=== PATIENT | female | born 1955 | race Caucasian/White ===

== ENCOUNTER 2017-12-21 05:32 | Inpatient (IN) ==
[2017-12-06 14:00] LABS: Basophils % 0.6 % (0.0-0.8); Eosinophils # 0.1 10*3/uL (0.0-0.87); Hematocrit 31.5 VOL% (35.7-47.0); Immature Granulocytes % 0.9 %; Immature Granulocytes Absolute 0.06 #; Lymphocytes # 2.3 10*3/uL (1.4-4.0); Lymphocytes % 34.1 % (21.3-54.2); Mean Corpuscular HGB Conc 31.7 GM/DL (32-36); Mean Corpuscular Hemoglobin 28 PG (27-34); Mean Platelet Volume 10.8 FL (9.6-12.0); Monocytes # 0.5 10*3/uL (0.11-0.8); Monocytes % 8.2 % (1.7-12.7); Neutrophils # 3.6 10*3/uL (1.4-7.4); Neutrophils % 54.2 % (38.7-73.9); Platelet Count 236 T/CUMM (130-400); Red Blood Count 3.58 MC/CUMM (3.8-5.5); White Blood Count 6.6 T/CUMM (4-12)
[2017-12-06 14:09] LABS: INR 0.9; PT Patient Result 9.8 SECS; Partial Thromboplastin Time 23.2 SECS (0-40)
[2017-12-06 14:24] LABS: Alanine Aminotransferase 26 U/L (13-56); Albumin 3.2 G/DL (3.4-5.0); Alkaline Phosphatase 112 U/L (45-117); Aspartate Amino Transferase 30 U/L (0-37); Bilirubin,Total < 0.39 MG/DL (0.2-1.0); Blood Urea Nitrogen 21 MG/DL (7-18); Calcium 8.3 MG/DL (8.5-10.1); Glucose 115 MG/DL (74-106); Osmolality,Calculated 278.7 MOS/KG (273-304); Sodium 138 MMOL/L (136-145)
[2017-12-06 14:47] LABS: Apearance,Urine CLOUDY (Clear); Bacteria,Urine Occasional /HPF (Few); Bilirubin,Urine Small mg/dL (Negative); Blood, Urine Negative (Negative); Glucose,Urine (UA) Negative (Negative); Hyaline Casts,Urine 34 /LPF (0-3); Ketones,Urine 5 mg/dL (Negative); Mucus,Urine Occasional /LPF (Occasional); Nitrite,Urine Negative (Negative); Protein,Urine 30 MG/DL; RBC,Urine 2 /HPF (0-4); Squamous Epithelial Cell,Urine Many /HPF (0-10); Urine Color Amber (Yellow); Urine Specific Gravity 1.021 (1.001-1.035); WBC,Urine 1 /HPF (0-6)
[~2017-12-21 05:32] MED LIST: VANCOMYCIN INJ 1,000 MG in SODIUM CHLORIDE 0.9% 250 ML IV ONE; ceFAZolin 2,000 MG in PREMIX 1 EACH IV ONE
[2017-12-21] MEDS ORDERED: FAMOTIDINE 20 MG TABLET PO ONE (06:00)
[2017-12-21] MEDS ORDERED: DIAZEPAM 5 MG TABLET PO ONE (06:00)
[2017-12-21] MEDS ORDERED: VANCOMYCIN 1,000 MG VIAL ONE (06:10)
[2017-12-21] MEDS ORDERED: ceFAZolin 1,000 MG VIAL ONE (06:10)
[2017-12-21] MEDS ORDERED: BUPIVACAINE SPINAL 0.75% 2 ML AMP SPINAL ONE (06:34)
[2017-12-21] MEDS ORDERED: TRANEXAMIC ACID 1,000 MG/10 ML VIAL ONE (06:35)
[2017-12-21] MEDS ORDERED: BACITRACIN OINT 0.9 GM PACK TOP ONE (06:35)
[2017-12-21] MEDS ORDERED: LACTATED RINGERS 1,000 ML IV SCH (07:00)
[2017-12-21] MEDS ORDERED: FAMOTIDINE 20 MG TABLET ONE (07:03)
[2017-12-21] MEDS ORDERED: DIAZEPAM 5 MG TABLET ONE (07:03)
[2017-12-21] MEDS ORDERED: VANCOMYCIN INJ 1,000 MG in SODIUM CHLORIDE 0.9% 250 ML IV ONE (07:11)
[2017-12-21] MEDS ORDERED: ceFAZolin 2,000 MG in PREMIX 1 EACH IV ONE (07:12)
[2017-12-21] MEDS ORDERED: diphenhydrAMINE CAP 25 MG CAPSULE PO PRN (07:56)
[2017-12-21] MEDS ORDERED: MORPHINE 4 MG/1 ML VIAL IV PRN ×2 (07:56)
[2017-12-21] MEDS ORDERED: oxyCODONE IR 5 MG TABLET PO PRN (07:56)
[2017-12-21] MEDS ORDERED: ZALEPLON 5 MG CAPSULE PO PRN (07:56)
[2017-12-21] MEDS ORDERED: ONDANSETRON 4 MG/2 ML VIAL IV PRN (07:56)
[2017-12-21] MEDS ORDERED: MAGNESIUM HYDROXIDE SUSP 30 ML UDCUP PO PRN (07:56)
[2017-12-21] MEDS ORDERED: CHOLECALCIFEROL 4000 UNIT PO SCH (08:00)
[2017-12-21] MEDS ORDERED: ROPIVACAINE 0.5% 30 ML VIAL ONE (08:15)
[2017-12-21] MEDS ORDERED: DHA PO SCH (09:00)
[2017-12-21] MEDS ORDERED: PRAVASTATIN 20 MG TABLET PO SCH (09:00)
[2017-12-21] MEDS ORDERED: SERTRALINE 100 MG TABLET PO SCH (09:00)
[2017-12-21] MEDS ORDERED: KRILL PO SCH (09:00)
[2017-12-21] MEDS ORDERED: AST PO SCH (09:00)
[2017-12-21] MEDS ORDERED: SPIRONOLACTONE 25 MG TABLET PO SCH (09:00)
[2017-12-21] MEDS ORDERED: [UNRECOGNIZED DRUG - OTHER] PO SCH (09:00)
[2017-12-21] MEDS ORDERED: PHOSPHO PO SCH (09:00)
[2017-12-21] MEDS ORDERED: EPA PO SCH (09:00)
[2017-12-21] MEDS ORDERED: DEXTROSE 50% 25 GM/50 ML VIAL IV PRN (09:10)
[2017-12-21] MEDS ORDERED: GLUCAGON 1 MG VIAL IM PRN (09:10)
[2017-12-21] MEDS ORDERED: fentaNYL 100 MCG/2 ML VIAL ONE (09:42)
[2017-12-21] MEDS ORDERED: MIDAZOLAM 2 MG/2 ML VIAL ONE (09:42)
[2017-12-21] MEDS ORDERED: PROPOFOL 200 MG/20 ML VIAL IV ONE (09:42)
[2017-12-21] MEDS ORDERED: PHENYLEPHRINE 1 MG/10 ML SYRINGE IV ONE (09:43)
[2017-12-21] MEDS ORDERED: ONDANSETRON 4 MG/2 ML VIAL ONE (09:43)
[2017-12-21] MEDS ORDERED: ACETAMINOPHEN 1,000 MG/100 ML VIAL IV ONE (09:43)
[2017-12-21] MEDS ORDERED: KETAMINE 500 MG/10 ML VIAL ONE (09:43)
[2017-12-21] MEDS ORDERED: KETOROLAC 30 MG/1 ML VIAL ONE (09:43)
[2017-12-21] MEDS ORDERED: GLYCOPYRROLATE 0.4 MG/2 ML VIAL ONE (09:43)
[2017-12-21] MEDS ORDERED: LACTATED RINGERS 1,000 ML IV ONE (09:44)
[2017-12-21] MEDS ORDERED: SODIUM CHLORIDE 0.9% 200 ML IV ONE (09:44)
[2017-12-21] MEDS ORDERED: SODIUM CHLORIDE 0.9% 500 ML IV ONE (09:44)
[2017-12-21] MEDS: RALOXIFENE 60 MG TABLET PO SCH (12:36)
[2017-12-21] MEDS: PANTOPRAZOLE 40 MG TABLET PO SCH (12:37)
[2017-12-21] MEDS: MAGNESIUM CHLORIDE 64 MG TABLET PO SCH ×3 (12:37→21:21)
[2017-12-21] MEDS: IRBESARTAN 150 MG TABLET PO SCH (12:37)
[2017-12-21] MEDS: hydroCHLOROthiazide 12.5 MG CAPSULE PO SCH (12:37)
[2017-12-21] MEDS: INSULIN LISPRO 100 UNIT/ML SUBCUT SCH ×3 (12:38→21:26)
[2017-12-21] MEDS: DOCUSATE SODIUM 100 MG CAPSULE PO SCH ×2 (12:38→21:21)
[2017-12-21] MEDS: LACTATED RINGERS 1,000 ML IV SCH (12:39)
[2017-12-21] MEDS: ESTROGENS (CONJ) VAG CREAM 30 GM TUBE VAG SCH (13:04)
[2017-12-21] MEDS: ACETAMINOPHEN 500 MG TABLET PO SCH ×2 (15:56→21:21)
[2017-12-21] MEDS: ceFAZolin 2,000 MG in PREMIX 1 EACH IV SCH ×2 (15:56→23:34)
[2017-12-21] MEDS: PRAVASTATIN 20 MG TABLET PO SCH (21:22)
[2017-12-21] MEDS: CARVEDILOL 12.5 MG TABLET PO SCH ×2 (21:22→21:26)
[2017-12-21] MEDS: SERTRALINE 100 MG TABLET PO SCH (21:26)
[2017-12-22] MEDS: FONDAPARINUX 2.5 MG/0.5 ML SYRINGE SUBCUT SCH (03:19)
[2017-12-22] MEDS: ACETAMINOPHEN 500 MG TABLET PO SCH ×2 (03:19→08:53)
[2017-12-22 04:10] LABS: Basophils % 0.4 % (0.0-0.8); Eosinophils # 0.1 10*3/uL (0.0-0.87); Eosinophils % 0.7 % (0.00-10.9); Hemoglobin 8.4 GM/DL (12.0-16.0); Immature Granulocytes % 0.5 %; Immature Granulocytes Absolute 0.05 #; Lymphocytes # 2.4 10*3/uL (1.4-4.0); Lymphocytes % 25.1 % (21.3-54.2); Mean Corpuscular Hemoglobin 27 PG (27-34); Mean Corpuscular Volume 90.9 FL (87-102); Mean Platelet Volume 11.7 FL (9.6-12.0); Monocytes # 1.1 10*3/uL (0.11-0.8); Monocytes % 11.9 % (1.7-12.7); Neutrophils # 5.8 10*3/uL (1.4-7.4); Neutrophils % 61.4 % (38.7-73.9); Platelet Count 195 T/CUMM (130-400); Red Blood Count 3.08 MC/CUMM (3.8-5.5); Red Cell Distribution Width 13.8 % (9.3-17.3); White Blood Count 9.4 T/CUMM (4-12)
[2017-12-22 04:36] LABS: Calcium 7.7 MG/DL (8.5-10.1); Osmolality,Calculated 281.7 MOS/KG (273-304); Potassium 4.4 MMOL/L (3.5-5.1)
[2017-12-22] MEDS: LEVOTHYROXINE 125 MCG TABLET PO SCH (05:37)
[2017-12-22] MEDS: LACTATED RINGERS 1,000 ML IV SCH (05:38)
[2017-12-22] MEDS ORDERED: LEVOTHYROXINE 125 MCG TABLET PO SCH (07:00)
[2017-12-22] MEDS: CARVEDILOL 12.5 MG TABLET PO SCH ×2 (08:51→20:06)
[2017-12-22] MEDS: IRBESARTAN 150 MG TABLET PO SCH (08:51)
[2017-12-22] MEDS: MAGNESIUM CHLORIDE 64 MG TABLET PO SCH ×3 (08:52→20:05)
[2017-12-22] MEDS: PANTOPRAZOLE 40 MG TABLET PO SCH (08:52)
[2017-12-22] MEDS: hydroCHLOROthiazide 12.5 MG CAPSULE PO SCH (08:52)
[2017-12-22] MEDS: RALOXIFENE 60 MG TABLET PO SCH (08:52)
[2017-12-22] MEDS: metFORMIN 500 MG TABLET PO SCH ×2 (08:54→17:21)
[2017-12-22] MEDS: INSULIN LISPRO 100 UNIT/ML SUBCUT SCH ×4 (08:54→20:50)
[2017-12-22] MEDS: DOCUSATE SODIUM 100 MG CAPSULE PO SCH ×2 (08:54→20:05)
[2017-12-22] MEDS ORDERED: sitaGLIPtin 100 MG TABLET PO SCH (09:00)
[2017-12-22] MEDS ORDERED: amLODIPine 5 MG TABLET PO SCH (09:00)
[2017-12-22] MEDS: ESTROGENS (CONJ) VAG CREAM 30 GM TUBE VAG SCH (09:13)
[2017-12-22] MEDS: amLODIPine 5 MG TABLET PO SCH (15:59)
[2017-12-22] MEDS: sitaGLIPtin 100 MG TABLET PO SCH (17:20)
[2017-12-22] MEDS: SPIRONOLACTONE 25 MG TABLET PO SCH (17:21)
[2017-12-22] MEDS: oxyCODONE IR 5 MG TABLET PO PRN (20:06)
[2017-12-22] MEDS: SERTRALINE 100 MG TABLET PO SCH (20:06)
[2017-12-22] MEDS: PRAVASTATIN 20 MG TABLET PO SCH (20:07)
[2017-12-23] MEDS: FONDAPARINUX 2.5 MG/0.5 ML SYRINGE SUBCUT SCH (01:03)
[2017-12-23] MEDS: oxyCODONE IR 5 MG TABLET PO PRN ×5 (01:03→21:01)
[2017-12-23 04:36] LABS: Basophils % 0.3 % (0.0-0.8); Eosinophils % 0.3 % (0.00-10.9); Hematocrit 25.9 VOL% (35.7-47.0); Immature Granulocytes Absolute 0.11 #; Lymphocytes # 2.2 10*3/uL (1.4-4.0); Mean Corpuscular HGB Conc 30.9 GM/DL (32-36); Mean Corpuscular Hemoglobin 28 PG (27-34); Mean Corpuscular Volume 89.3 FL (87-102); Mean Platelet Volume 11.5 FL (9.6-12.0); Monocytes # 1.5 10*3/uL (0.11-0.8); Monocytes % 12.5 % (1.7-12.7); Neutrophils # 7.7 10*3/uL (1.4-7.4); Neutrophils % 66.9 % (38.7-73.9); Platelet Count 189 T/CUMM (130-400); Red Cell Distribution Width 13.9 % (9.3-17.3); White Blood Count 11.6 T/CUMM (4-12)
[2017-12-23] MEDS: LEVOTHYROXINE 125 MCG TABLET PO SCH (05:49)
[2017-12-23] MEDS: SPIRONOLACTONE 25 MG TABLET PO SCH (08:50)
[2017-12-23] MEDS: MAGNESIUM CHLORIDE 64 MG TABLET PO SCH ×3 (08:52→20:57)
[2017-12-23] MEDS: RALOXIFENE 60 MG TABLET PO SCH (08:52)
[2017-12-23] MEDS: IRBESARTAN 150 MG TABLET PO SCH (08:52)
[2017-12-23] MEDS: metFORMIN 500 MG TABLET PO SCH ×2 (08:52→16:17)
[2017-12-23] MEDS: hydroCHLOROthiazide 12.5 MG CAPSULE PO SCH (08:52)
[2017-12-23] MEDS: amLODIPine 5 MG TABLET PO SCH (08:53)
[2017-12-23] MEDS: INSULIN LISPRO 100 UNIT/ML SUBCUT SCH ×4 (08:53→20:56)
[2017-12-23] MEDS: PANTOPRAZOLE 40 MG TABLET PO SCH (08:53)
[2017-12-23] MEDS: CARVEDILOL 12.5 MG TABLET PO SCH ×2 (08:53→20:57)
[2017-12-23] MEDS: sitaGLIPtin 100 MG TABLET PO SCH (08:53)
[2017-12-23] MEDS: DOCUSATE SODIUM 100 MG CAPSULE PO SCH ×2 (08:53→20:57)
[2017-12-23] MEDS: ESTROGENS (CONJ) VAG CREAM 30 GM TUBE VAG SCH (09:36)
[2017-12-23] MEDS: SERTRALINE 100 MG TABLET PO SCH (20:57)
[2017-12-23] MEDS: PRAVASTATIN 20 MG TABLET PO SCH (20:57)
[2017-12-24] MEDS: FONDAPARINUX 2.5 MG/0.5 ML SYRINGE SUBCUT SCH (06:08)
[2017-12-24] MEDS: oxyCODONE IR 5 MG TABLET PO PRN ×2 (06:09→10:02)
[2017-12-24] MEDS: LEVOTHYROXINE 125 MCG TABLET PO SCH (07:26)
[2017-12-24 07:36] LABS: Basophils % 0.3 % (0.0-0.8); Eosinophils % 0.4 % (0.00-10.9); Hematocrit 24.4 VOL% (35.7-47.0); Hemoglobin 7.5 GM/DL (12.0-16.0); Immature Granulocytes % 1.2 %; Immature Granulocytes Absolute 0.12 #; Lymphocytes # 2.2 10*3/uL (1.4-4.0); Lymphocytes % 21.4 % (21.3-54.2); Mean Corpuscular HGB Conc 30.7 GM/DL (32-36); Mean Corpuscular Hemoglobin 27 PG (27-34); Mean Corpuscular Volume 88.4 FL (87-102); Mean Platelet Volume 11.6 FL (9.6-12.0); Monocytes # 1.1 10*3/uL (0.11-0.8); Monocytes % 10.5 % (1.7-12.7); Neutrophils # 6.8 10*3/uL (1.4-7.4); Neutrophils % 66.2 % (38.7-73.9); Platelet Count 218 T/CUMM (130-400); Red Blood Count 2.76 MC/CUMM (3.8-5.5); Red Cell Distribution Width 13.9 % (9.3-17.3); White Blood Count 10.2 T/CUMM (4-12)
[2017-12-24] MEDS: INSULIN LISPRO 100 UNIT/ML SUBCUT SCH (07:49)
[2017-12-24] MEDS: hydroCHLOROthiazide 12.5 MG CAPSULE PO SCH (08:50)
[2017-12-24] MEDS: DOCUSATE SODIUM 100 MG CAPSULE PO SCH (08:50)
[2017-12-24] MEDS: RALOXIFENE 60 MG TABLET PO SCH (08:50)
[2017-12-24] MEDS: SPIRONOLACTONE 25 MG TABLET PO SCH (08:50)
[2017-12-24] MEDS: amLODIPine 5 MG TABLET PO SCH (08:50)
[2017-12-24] MEDS: sitaGLIPtin 100 MG TABLET PO SCH (08:50)
[2017-12-24] MEDS: PANTOPRAZOLE 40 MG TABLET PO SCH (08:50)
[2017-12-24] MEDS: metFORMIN 500 MG TABLET PO SCH (08:50)
[2017-12-24] MEDS: IRBESARTAN 150 MG TABLET PO SCH (08:50)
[2017-12-24] MEDS: CARVEDILOL 12.5 MG TABLET PO SCH (08:50)
[2017-12-24] MEDS: ESTROGENS (CONJ) VAG CREAM 30 GM TUBE VAG SCH (08:51)
[2017-12-24] MEDS: MAGNESIUM CHLORIDE 64 MG TABLET PO SCH (08:51)
[2017-12-24 11:15] VITALS: BP 121/52
== END 2017-12-24 11:00 | disposition home or self-care (01) | DRG 470 ==
LOC: N.OR 05:32 → N.SDSINP 05:35 → N.3E 07:57
PROVIDERS: ADMIT Orthopaedic Surgery; ATTEND Orthopaedic Surgery

== ENCOUNTER 2018-07-15 05:45 | Inpatient (IN) ==
[2018-07-11 14:21] LABS: Basophils % 0.4 % (0.0-0.8); Eosinophils # 0.1 10*3/uL (0.0-0.87); Hematocrit 30.9 VOL% (35.7-47.0); Hemoglobin 9.1 GM/DL (12.0-16.0); Immature Granulocytes % 0.4 %; Immature Granulocytes Absolute 0.03 #; Lymphocytes # 2.5 10*3/uL (1.4-4.0); Lymphocytes % 31.9 % (21.3-54.2); Mean Corpuscular HGB Conc 29.4 GM/DL (32-36); Mean Corpuscular Hemoglobin 26 PG (27-34); Mean Corpuscular Volume 86.6 FL (87-102); Monocytes # 0.6 10*3/uL (0.11-0.8); Monocytes % 7.7 % (1.7-12.7); Neutrophils # 4.6 10*3/uL (1.4-7.4); Neutrophils % 58.6 % (38.7-73.9); Platelet Count 261 T/CUMM (130-400); Red Blood Count 3.57 MC/CUMM (3.8-5.5); Red Cell Distribution Width 15.1 % (9.3-17.3); White Blood Count 7.8 T/CUMM (4-12)
[2018-07-11 14:32] LABS: Calcium 8.5 MG/DL (8.5-10.1); Potassium 4.6 MMOL/L (3.5-5.1)
[2018-07-11 15:54] LABS: Hypochromasia 1+
[2018-07-11 15:55] LABS: Microcytosis Slight; Platelet Estimate Normal
[2018-07-15] MEDS ORDERED: ceFAZolin 2,000 MG in PREMIX 1 EACH IV ONE (06:00)
[2018-07-15 06:24] LABS: Apearance,Urine CLEAR (Clear); Bilirubin,Urine Negative (Negative); Blood, Urine Negative (Negative); Glucose,Urine (UA) Negative (Negative); Ketones,Urine Negative (Negative); Mucus,Urine Occasional /LPF (Occasional); Nitrite,Urine Negative (Negative); Protein,Urine Negative; RBC,Urine <1 /HPF (0-4); Squamous Epithelial Cell,Urine Occasional /HPF (0-10); Urine Color Yellow (Yellow); Urine Specific Gravity 1.012 (1.001-1.035); Urine Urobilinogen < 2.0 EU/DL (0.2-1.0); WBC,Urine <1 /HPF (0-6)
[2018-07-15] MEDS ORDERED: BUPIVACAINE SPINAL 0.75% 2 ML AMP SPINAL ONE (06:44)
[2018-07-15] MEDS ORDERED: PANTOPRAZOLE 40 MG TABLET PO ONE ×2 (06:49→07:23)
[2018-07-15] MEDS ORDERED: DIAZEPAM 5 MG TABLET PO ONE (06:49)
[2018-07-15] MEDS ORDERED: ROPIVACAINE 0.5% 30 ML VIAL ONE (07:19)
[2018-07-15] MEDS ORDERED: DIAZEPAM 5 MG TABLET ONE (07:22)
[2018-07-15] MEDS ORDERED: LACTATED RINGERS 1,000 ML IV SCH (07:45)
[2018-07-15] MEDS ORDERED: BACITRACIN OINT 0.9 GM PACK TOP ONE (09:08)
[2018-07-15] MEDS ORDERED: HYDROmorphone 2 MG/1 ML VIAL ONE (11:14)
[2018-07-15] MEDS ORDERED: GLUCAGON 1 MG VIAL IM PRN (11:22)
[2018-07-15] MEDS ORDERED: DEXTROSE 50% 25 GM/50 ML VIAL IV PRN (11:22)
[2018-07-15] MEDS ORDERED: oxyCODONE IR 5 MG TABLET PO PRN ×2 (11:23)
[2018-07-15] MEDS ORDERED: ONDANSETRON 4 MG/2 ML VIAL IV PRN ×2 (11:23→11:44)
[2018-07-15] MEDS ORDERED: MAGNESIUM HYDROXIDE SUSP 30 ML UDCUP PO PRN (11:23)
[2018-07-15] MEDS ORDERED: diphenhydrAMINE CAP 25 MG CAPSULE PO PRN (11:23)
[2018-07-15] MEDS ORDERED: MORPHINE 4 MG/1 ML VIAL IV PRN ×2 (11:23)
[2018-07-15] MEDS ORDERED: ZALEPLON 5 MG CAPSULE PO PRN (11:23)
[2018-07-15] MEDS ORDERED: ESTROGENS (CONJ) VAG CREAM 30 GM TUBE VAG SCH (11:30)
[2018-07-15] MEDS ORDERED: CYANOCOBALAMIN 1000 MCG/1 ML VIAL IM SCH (11:30)
[2018-07-15] MEDS ORDERED: MAGNESIUM CHLORIDE 64 MG TABLET PO SCH (11:30)
[2018-07-15] MEDS: LACTATED RINGERS 1,000 ML IV SCH ×2 (11:33→20:52)
[2018-07-15] MEDS ORDERED: diphenhydrAMINE 50 MG/1 ML VIAL IV PRN (11:44)
[2018-07-15] MEDS ORDERED: PROMETHAZINE INJ 25 MG in SODIUM CHLORIDE 0.9% 50 ML IV PRN (11:44)
[2018-07-15] MEDS ORDERED: PROMETHAZINE 25 MG/1 ML VIAL ONE (11:47)
[2018-07-15] MEDS: MEPERIDINE 25 MG/1 ML VIAL IV PRN ×2 (11:50→12:25)
[2018-07-15] MEDS: HYDROmorphone 2 MG/1 ML VIAL IV PRN ×4 (12:00→12:15)
[2018-07-15] MEDS ORDERED: SEVOFLURANE 1 UNIT/15 MINUTE INH ONE (12:08)
[2018-07-15] MEDS ORDERED: PROPOFOL 200 MG/20 ML VIAL IV ONE (12:08)
[2018-07-15] MEDS ORDERED: ePHEDrine 50 MG/ML AMP ONE (12:09)
[2018-07-15] MEDS ORDERED: MIDAZOLAM 2 MG/2 ML VIAL ONE (12:09)
[2018-07-15] MEDS ORDERED: TRANEXAMIC ACID 1,000 MG/10 ML VIAL ONE (12:09)
[2018-07-15] MEDS ORDERED: ACETAMINOPHEN 1,000 MG/100 ML VIAL IV ONE (12:09)
[2018-07-15] MEDS ORDERED: fentaNYL 100 MCG/2 ML VIAL ONE (12:09)
[2018-07-15] MEDS ORDERED: LACTATED RINGERS 1,000 ML IV ONE (12:10)
[2018-07-15] MEDS ORDERED: ROCURONIUM 100 MG/10 ML VIAL IV ONE (12:10)
[2018-07-15] MEDS ORDERED: SODIUM CHLORIDE 0.9% 100 ML IV ONE (12:10)
[2018-07-15] MEDS ORDERED: diphenhydrAMINE 50 MG/1 ML VIAL ONE (12:23)
[2018-07-15] MEDS: INSULIN LISPRO 100 UNIT/ML SUBCUT SCH ×3 (12:28→20:50)
[2018-07-15] MEDS ORDERED: KETOROLAC 30 MG/1 ML VIAL IV SCH (12:30)
[2018-07-15] MEDS: SPIRONOLACTONE 25 MG TABLET PO SCH (16:31)
[2018-07-15] MEDS: metFORMIN 500 MG TABLET PO SCH (16:31)
[2018-07-15] MEDS: ACETAMINOPHEN 500 MG TABLET PO SCH ×2 (16:32→20:51)
[2018-07-15] MEDS: CHOLECALCIFEROL 1,000 UNIT TABLET PO SCH (16:33)
[2018-07-15] MEDS: ceFAZolin 2,000 MG in PREMIX 1 EACH IV SCH (16:34)
[2018-07-15] MEDS: SERTRALINE 100 MG TABLET PO SCH (20:51)
[2018-07-15] MEDS: MAGNESIUM CHLORIDE 64 MG TABLET PO SCH (20:51)
[2018-07-15] MEDS: DOCUSATE SODIUM 100 MG CAPSULE PO SCH (20:51)
[2018-07-15] MEDS: SIMVASTATIN 10 MG TABLET PO SCH (20:51)
[2018-07-15] MEDS: CARVEDILOL 12.5 MG TABLET PO SCH (21:03)
[2018-07-15] MEDS ORDERED: CARVEDILOL 12.5 MG TABLET PO SCH (21:30)
[2018-07-16] MEDS: ceFAZolin 2,000 MG in PREMIX 1 EACH IV SCH (01:06)
[2018-07-16] MEDS: ACETAMINOPHEN 500 MG TABLET PO SCH ×2 (03:16→09:34)
[2018-07-16 05:31] LABS: Basophils % 0.3 % (0.0-0.8); Eosinophils # 0.1 10*3/uL (0.0-0.87); Eosinophils % 0.7 % (0.00-10.9); Hematocrit 26.4 VOL% (35.7-47.0); Hemoglobin 7.8 GM/DL (12.0-16.0); Immature Granulocytes % 0.6 %; Immature Granulocytes Absolute 0.06 #; Lymphocytes # 1.6 10*3/uL (1.4-4.0); Lymphocytes % 16.3 % (21.3-54.2); Mean Corpuscular HGB Conc 29.5 GM/DL (32-36); Mean Corpuscular Hemoglobin 26 PG (27-34); Mean Corpuscular Volume 87.1 FL (87-102); Mean Platelet Volume 11.2 FL (9.6-12.0); Monocytes # 1.1 10*3/uL (0.11-0.8); Monocytes % 11.2 % (1.7-12.7); Neutrophils # 6.9 10*3/uL (1.4-7.4); Neutrophils % 70.9 % (38.7-73.9); Platelet Count 208 T/CUMM (130-400); Red Blood Count 3.03 MC/CUMM (3.8-5.5); White Blood Count 9.7 T/CUMM (4-12)
[2018-07-16 05:41] LABS: Calcium 7.6 MG/DL (8.5-10.1); Osmolality,Calculated 271.2 MOS/KG (273-304); Potassium 4.3 MMOL/L (3.5-5.1)
[2018-07-16] MEDS: FONDAPARINUX 2.5 MG/0.5 ML SYRINGE SUBCUT SCH (06:15)
[2018-07-16] MEDS: LACTATED RINGERS 1,000 ML IV SCH (06:16)
[2018-07-16] MEDS: LEVOTHYROXINE 125 MCG TABLET PO SCH (06:20)
[2018-07-16] MEDS ORDERED: sitaGLIPtin 100 MG TABLET PO SCH (09:00)
[2018-07-16] MEDS: RALOXIFENE 60 MG TABLET PO SCH (09:33)
[2018-07-16] MEDS: metFORMIN 500 MG TABLET PO SCH ×2 (09:33→17:59)
[2018-07-16] MEDS: DOCUSATE SODIUM 100 MG CAPSULE PO SCH ×2 (09:34→20:50)
[2018-07-16] MEDS: INSULIN LISPRO 100 UNIT/ML SUBCUT SCH ×4 (09:35→23:16)
[2018-07-16] MEDS: LOSARTAN/HCTZ 50-12.5 MG TABLET PO SCH (10:12)
[2018-07-16] MEDS: LOSARTAN 50 MG TABLET PO SCH (10:12)
[2018-07-16] MEDS: CARVEDILOL 12.5 MG TABLET PO SCH ×2 (10:12→20:50)
[2018-07-16] MEDS: MAGNESIUM CHLORIDE 64 MG TABLET PO SCH ×3 (10:13→20:50)
[2018-07-16] MEDS: PANTOPRAZOLE 40 MG TABLET PO SCH (10:13)
[2018-07-16] MEDS: amLODIPine 5 MG TABLET PO SCH (10:13)
[2018-07-16] MEDS ORDERED: metFORMIN 500 MG TABLET PO SCH (11:30)
[2018-07-16] MEDS ORDERED: CYANOCOBALAMIN 1000 MCG/1 ML VIAL IM SCH (16:00)
[2018-07-16] MEDS: CHOLECALCIFEROL 1,000 UNIT TABLET PO SCH (16:46)
[2018-07-16] MEDS: CELECOXIB 200 MG CAPSULE PO SCH (16:46)
[2018-07-16] MEDS: sitaGLIPtin 100 MG TABLET PO SCH (16:47)
[2018-07-16] MEDS: SPIRONOLACTONE 25 MG TABLET PO SCH (17:00)
[2018-07-16] MEDS: SIMVASTATIN 10 MG TABLET PO SCH (20:50)
[2018-07-16] MEDS: SERTRALINE 100 MG TABLET PO SCH (20:50)
[2018-07-17 05:44] LABS: Basophils % 0.4 % (0.0-0.8); Eosinophils # 0.2 10*3/uL (0.0-0.87); Eosinophils % 1.7 % (0.00-10.9); Hematocrit 24.6 VOL% (35.7-47.0); Immature Granulocytes % 0.8 %; Immature Granulocytes Absolute 0.07 #; Lymphocytes # 2.1 10*3/uL (1.4-4.0); Lymphocytes % 23.3 % (21.3-54.2); Mean Corpuscular HGB Conc 28.5 GM/DL (32-36); Mean Corpuscular Hemoglobin 25 PG (27-34); Mean Corpuscular Volume 89.1 FL (87-102); Mean Platelet Volume 11.3 FL (9.6-12.0); Monocytes # 1.1 10*3/uL (0.11-0.8); Monocytes % 12.2 % (1.7-12.7); Neutrophils # 5.5 10*3/uL (1.4-7.4); Neutrophils % 61.6 % (38.7-73.9); Platelet Count 183 T/CUMM (130-400); Red Blood Count 2.76 MC/CUMM (3.8-5.5); Red Cell Distribution Width 14.9 % (9.3-17.3); White Blood Count 8.9 T/CUMM (4-12)
[2018-07-17 06:06] LABS: Hypochromasia 1+
[2018-07-17 06:07] LABS: Microcytosis 1+; Ovalocytes Slight
[2018-07-17] MEDS: FONDAPARINUX 2.5 MG/0.5 ML SYRINGE SUBCUT SCH (06:07)
[2018-07-17 06:08] LABS: Platelet Estimate Adequate
[2018-07-17] MEDS: LEVOTHYROXINE 125 MCG TABLET PO SCH (06:12)
[2018-07-17] MEDS: CELECOXIB 200 MG CAPSULE PO SCH (08:39)
[2018-07-17] MEDS: LOSARTAN 50 MG TABLET PO SCH (08:40)
[2018-07-17] MEDS: amLODIPine 5 MG TABLET PO SCH (08:40)
[2018-07-17] MEDS: RALOXIFENE 60 MG TABLET PO SCH (08:40)
[2018-07-17] MEDS: LOSARTAN/HCTZ 50-12.5 MG TABLET PO SCH (08:40)
[2018-07-17] MEDS: CARVEDILOL 12.5 MG TABLET PO SCH ×2 (08:41→21:31)
[2018-07-17] MEDS: INSULIN LISPRO 100 UNIT/ML SUBCUT SCH ×4 (08:41→21:30)
[2018-07-17] MEDS: PANTOPRAZOLE 40 MG TABLET PO SCH (08:41)
[2018-07-17] MEDS: DOCUSATE SODIUM 100 MG CAPSULE PO SCH ×2 (08:41→21:30)
[2018-07-17] MEDS ORDERED: ESTROGENS (CONJ) VAG CREAM 30 GM TUBE VAG SCH (09:00)
[2018-07-17] MEDS: metFORMIN 500 MG TABLET PO SCH ×2 (09:10→16:51)
[2018-07-17] MEDS: sitaGLIPtin 100 MG TABLET PO SCH (16:50)
[2018-07-17] MEDS: CHOLECALCIFEROL 1,000 UNIT TABLET PO SCH (16:51)
[2018-07-17] MEDS: SPIRONOLACTONE 25 MG TABLET PO SCH (16:51)
[2018-07-17] MEDS: MAGNESIUM CHLORIDE 64 MG TABLET PO SCH ×2 (17:48→21:30)
[2018-07-17] MEDS: SERTRALINE 100 MG TABLET PO SCH (21:30)
[2018-07-17] MEDS: SIMVASTATIN 10 MG TABLET PO SCH (21:30)
[2018-07-18 05:35] LABS: Basophils % 0.3 % (0.0-0.8); Eosinophils # 0.2 10*3/uL (0.0-0.87); Eosinophils % 2.3 % (0.00-10.9); Hematocrit 22.8 VOL% (35.7-47.0); Hemoglobin 6.6 GM/DL (12.0-16.0); Immature Granulocytes % 0.9 %; Immature Granulocytes Absolute 0.08 #; Lymphocytes # 1.6 10*3/uL (1.4-4.0); Lymphocytes % 18.8 % (21.3-54.2); Mean Corpuscular HGB Conc 28.9 GM/DL (32-36); Mean Corpuscular Hemoglobin 26 PG (27-34); Mean Platelet Volume 11.3 FL (9.6-12.0); Monocytes # 0.8 10*3/uL (0.11-0.8); Monocytes % 9.1 % (1.7-12.7); Neutrophils # 5.9 10*3/uL (1.4-7.4); Neutrophils % 68.6 % (38.7-73.9); Platelet Count 189 T/CUMM (130-400); Red Blood Count 2.59 MC/CUMM (3.8-5.5); Red Cell Distribution Width 14.9 % (9.3-17.3); White Blood Count 8.7 T/CUMM (4-12)
[2018-07-18] MEDS ORDERED: FUROSEMIDE 20 MG/2 ML VIAL IV PRN (06:35)
[2018-07-18] MEDS ORDERED: SODIUM CHLORIDE 0.9% 1,000 ML IV PRN (06:35)
[2018-07-18] MEDS: LEVOTHYROXINE 125 MCG TABLET PO SCH (06:41)
[2018-07-18] MEDS: FONDAPARINUX 2.5 MG/0.5 ML SYRINGE SUBCUT SCH (06:41)
[2018-07-18] MEDS: metFORMIN 500 MG TABLET PO SCH ×2 (08:34→16:46)
[2018-07-18] MEDS: DOCUSATE SODIUM 100 MG CAPSULE PO SCH ×2 (08:35→22:00)
[2018-07-18] MEDS: PANTOPRAZOLE 40 MG TABLET PO SCH (08:35)
[2018-07-18] MEDS: RALOXIFENE 60 MG TABLET PO SCH (08:35)
[2018-07-18] MEDS: INSULIN LISPRO 100 UNIT/ML SUBCUT SCH ×4 (08:44→22:00)
[2018-07-18] MEDS: CARVEDILOL 12.5 MG TABLET PO SCH ×2 (09:13→22:00)
[2018-07-18] MEDS: LOSARTAN 50 MG TABLET PO SCH (09:13)
[2018-07-18] MEDS: LOSARTAN/HCTZ 50-12.5 MG TABLET PO SCH (09:14)
[2018-07-18] MEDS: amLODIPine 5 MG TABLET PO SCH (09:14)
[2018-07-18] MEDS: CHOLECALCIFEROL 1,000 UNIT TABLET PO SCH (16:45)
[2018-07-18] MEDS: SPIRONOLACTONE 25 MG TABLET PO SCH (16:45)
[2018-07-18] MEDS: sitaGLIPtin 100 MG TABLET PO SCH (16:45)
[2018-07-18] MEDS: MAGNESIUM CHLORIDE 64 MG TABLET PO SCH ×2 (16:46→21:59)
[2018-07-18] MEDS: SIMVASTATIN 10 MG TABLET PO SCH (22:00)
[2018-07-18] MEDS: SERTRALINE 100 MG TABLET PO SCH (22:00)
[2018-07-19 05:23] LABS: Basophils % 0.5 % (0.0-0.8); Eosinophils # 0.2 10*3/uL (0.0-0.87); Eosinophils % 2.2 % (0.00-10.9); Hematocrit 28.5 VOL% (35.7-47.0); Hemoglobin 8.6 GM/DL (12.0-16.0); Immature Granulocytes % 0.7 %; Immature Granulocytes Absolute 0.05 #; Lymphocytes # 1.8 10*3/uL (1.4-4.0); Lymphocytes % 23.9 % (21.3-54.2); Mean Corpuscular HGB Conc 30.2 GM/DL (32-36); Mean Corpuscular Hemoglobin 26 PG (27-34); Mean Corpuscular Volume 86.6 FL (87-102); Monocytes # 0.7 10*3/uL (0.11-0.8); Monocytes % 9.5 % (1.7-12.7); Neutrophils # 4.8 10*3/uL (1.4-7.4); Neutrophils % 63.2 % (38.7-73.9); Platelet Count 220 T/CUMM (130-400); Red Blood Count 3.29 MC/CUMM (3.8-5.5); Red Cell Distribution Width 14.6 % (9.3-17.3); White Blood Count 7.7 T/CUMM (4-12)
[2018-07-19] MEDS: LEVOTHYROXINE 125 MCG TABLET PO SCH (07:18)
[2018-07-19] MEDS: FONDAPARINUX 2.5 MG/0.5 ML SYRINGE SUBCUT SCH (07:18)
[2018-07-19 07:36] VITALS: BP 106/51
[2018-07-19] MEDS: RALOXIFENE 60 MG TABLET PO SCH (09:12)
[2018-07-19] MEDS: metFORMIN 500 MG TABLET PO SCH (09:12)
[2018-07-19] MEDS: PANTOPRAZOLE 40 MG TABLET PO SCH (09:13)
[2018-07-19] MEDS: LOSARTAN/HCTZ 50-12.5 MG TABLET PO SCH (09:13)
[2018-07-19] MEDS: DOCUSATE SODIUM 100 MG CAPSULE PO SCH (09:13)
[2018-07-19] MEDS: LOSARTAN 50 MG TABLET PO SCH (09:13)
[2018-07-19] MEDS: INSULIN LISPRO 100 UNIT/ML SUBCUT SCH (09:24)
[2018-07-19] MEDS: CARVEDILOL 12.5 MG TABLET PO SCH (09:25)
[2018-07-19] MEDS: amLODIPine 5 MG TABLET PO SCH (09:25)
== END 2018-07-19 10:40 | disposition home or self-care (01) | DRG 481 ==
LOC: N.OR 05:45 → N.SDSINP 06:20 → N.3E 13:36
PROVIDERS: ADMIT Orthopaedic Surgery; ATTEND Orthopaedic Surgery

== ENCOUNTER 2018-12-23 05:14 | Inpatient (IN) ==
[2018-12-16 10:11] LABS: Basophils % 0.3 % (0.0-0.8); Eosinophils # 0.1 10*3/uL (0.0-0.87); Hematocrit 33.8 VOL% (35.7-47.0); Immature Granulocytes % 0.7 %; Immature Granulocytes Absolute 0.04 #; Lymphocytes # 1.5 10*3/uL (1.4-4.0); Lymphocytes % 25.4 % (21.3-54.2); Mean Corpuscular HGB Conc 29.6 GM/DL (32-36); Mean Corpuscular Volume 92.1 FL (87-102); Mean Platelet Volume 10.8 FL (9.6-12.0); Monocytes % 8.5 % (1.7-12.7); Neutrophils % 64.1 % (38.7-73.9); Platelet Count 209 T/CUMM (130-400); Red Blood Count 3.67 MC/CUMM (3.8-5.5); Red Cell Distribution Width 14.3 % (9.3-17.3); White Blood Count 5.9 T/CUMM (4-12)
[2018-12-16 10:19] LABS: Apearance,Urine CLEAR (Clear); Bilirubin,Urine Negative (Negative); Blood, Urine Negative (Negative); Glucose,Urine (UA) Negative (Negative); Hyaline Casts,Urine 9 /LPF (0-3); Ketones,Urine Negative (Negative); Mucus,Urine Occasional /LPF (Occasional); Nitrite,Urine Negative (Negative); Protein,Urine Negative; RBC,Urine <1 /HPF (0-4); Squamous Epithelial Cell,Urine Few /HPF (0-10); Urine Color Yellow (Yellow); Urine Specific Gravity 1.018 (1.001-1.035); Urine Urobilinogen < 2.0 EU/DL (0.2-1.0); WBC,Urine <1 /HPF (0-6)
[2018-12-16 10:20] LABS: INR 0.9; PT Patient Result 9.8 SECS; Partial Thromboplastin Time 23.3 SECS (0-40)
[2018-12-16 10:31] LABS: Alanine Aminotransferase 26 U/L (13-56); Albumin 3.3 G/DL (3.4-5.0); Alkaline Phosphatase 123 U/L (45-117); Aspartate Amino Transferase 29 U/L (0-37); Bilirubin,Total < 0.39 MG/DL (0.2-1.0); Blood Urea Nitrogen 24 MG/DL (7-18); Calcium 8.9 MG/DL (8.5-10.1); Glucose 142 MG/DL (74-106); Osmolality,Calculated 286.3 MOS/KG (273-304); Total Protein 7.2 G/DL (6.4-8.3)
[2018-12-23] MEDS ORDERED: VANCOMYCIN 1,000 MG VIAL ONE (05:50)
[2018-12-23] MEDS ORDERED: ceFAZolin 2,000 MG in PREMIX 1 EACH IV ONE (06:00)
[2018-12-23] MEDS ORDERED: VANCOMYCIN INJ 1,000 MG in SODIUM CHLORIDE 0.9% 250 ML IV ONE ×2 (06:00→18:45)
[2018-12-23] MEDS ORDERED: BACITRACIN OINT 0.9 GM PACK TOP ONE (06:18)
[2018-12-23] MEDS ORDERED: ACETAMINOPHEN 500 MG TABLET PO STA (06:23)
[2018-12-23] MEDS ORDERED: ACETAMINOPHEN 500 MG TABLET ONE (06:30)
[2018-12-23] MEDS ORDERED: GABAPENTIN 400 MG CAPSULE ONE (06:30)
[2018-12-23] MEDS ORDERED: GABAPENTIN 400 MG CAPSULE PO STA (06:31)
[2018-12-23] MEDS: LACTATED RINGERS 1,000 ML IV SCH ×4 (06:37→22:02)
[2018-12-23] MEDS ORDERED: BUPIVACAINE SPINAL 0.75% 2 ML AMP SPINAL ONE (06:39)
[2018-12-23] MEDS ORDERED: BUPIVACAINE 0.5% 50 ML VIAL ONE (06:40)
[2018-12-23] MEDS ORDERED: EPINEPHrine 1 MG/ML VIAL ONE ×2 (06:40→09:02)
[2018-12-23] MEDS ORDERED: MORPHINE 10 MG/10 ML VIAL ONE (06:40)
[2018-12-23] MEDS ORDERED: TRANEXAMIC ACID 1,000 MG/10 ML VIAL ONE (06:41)
[2018-12-23] MEDS ORDERED: DEXAMETHASONE 4 MG/1 ML VIAL ONE (06:41)
[2018-12-23] MEDS ORDERED: oxyCODONE IR 5 MG TABLET PO PRN ×2 (08:32)
[2018-12-23] MEDS ORDERED: diphenhydrAMINE CAP 25 MG CAPSULE PO PRN (08:32)
[2018-12-23] MEDS ORDERED: MAGNESIUM HYDROXIDE SUSP 30 ML UDCUP PO PRN (08:32)
[2018-12-23] MEDS ORDERED: MORPHINE 4 MG/1 ML VIAL IV PRN ×2 (08:32)
[2018-12-23] MEDS ORDERED: ONDANSETRON 4 MG/2 ML VIAL IV PRN ×2 (08:32→09:38)
[2018-12-23] MEDS ORDERED: SUGAMMADEX 200 MG/2 ML VIAL IV ONE (08:40)
[2018-12-23] MEDS ORDERED: ALBUTEROL 2.5 MG/3 ML NEB RESP TX ONE (08:52)
[2018-12-23] MEDS ORDERED: PROPOFOL 200 MG/20 ML VIAL IV ONE (09:01)
[2018-12-23] MEDS ORDERED: fentaNYL 100 MCG/2 ML VIAL ONE ×2 (09:02→09:06)
[2018-12-23] MEDS ORDERED: ALBUTEROL INHALER 8 GM INH ONE (09:02)
[2018-12-23] MEDS ORDERED: GLYCOPYRROLATE 0.4 MG/2 ML VIAL ONE (09:02)
[2018-12-23] MEDS ORDERED: MIDAZOLAM 2 MG/2 ML VIAL ONE (09:02)
[2018-12-23] MEDS ORDERED: ePHEDrine 50 MG/ML AMP ONE (09:02)
[2018-12-23] MEDS ORDERED: DESFLURANE 1 UNIT/15 MINUTE INH ONE (09:02)
[2018-12-23] MEDS ORDERED: PHENYLEPHRINE 1 MG/10 ML SYRINGE IV ONE (09:03)
[2018-12-23] MEDS ORDERED: NEOSTIGMINE 10 MG/10 ML VIAL ONE (09:03)
[2018-12-23] MEDS ORDERED: KETOROLAC 30 MG/1 ML VIAL ONE (09:20)
[2018-12-23] MEDS: KETOROLAC 30 MG/1 ML VIAL IV SCH ×3 (09:22→22:03)
[2018-12-23] MEDS: MORPHINE 10 MG/1 ML VIAL IV PRN ×4 (09:40→10:40)
[2018-12-23] MEDS ORDERED: GLUCAGON 1 MG VIAL IM PRN (11:09)
[2018-12-23] MEDS ORDERED: DEXTROSE 10% 25 GM/250 ML BAG IV PRN (11:09)
[2018-12-23] MEDS: INSULIN LISPRO 100 UNIT/ML SUBCUT SCH ×3 (11:30→22:02)
[2018-12-23] MEDS: PANTOPRAZOLE 40 MG TABLET PO SCH (13:52)
[2018-12-23] MEDS: DOCUSATE SODIUM 100 MG CAPSULE PO SCH ×2 (13:52→21:59)
[2018-12-23] MEDS: MAGNESIUM CHLORIDE 64 MG TABLET PO SCH ×3 (13:52→21:59)
[2018-12-23] MEDS: sitaGLIPtin 100 MG TABLET PO SCH (16:36)
[2018-12-23] MEDS: CARVEDILOL 12.5 MG TABLET PO SCH ×2 (16:36→21:59)
[2018-12-23] MEDS: ceFAZolin 2,000 MG in PREMIX 1 EACH IV SCH (16:37)
[2018-12-23] MEDS: SPIRONOLACTONE 25 MG TABLET PO SCH (17:31)
[2018-12-23] MEDS: CHOLECALCIFEROL 1,000 UNIT TABLET PO SCH (17:31)
[2018-12-23] MEDS: metFORMIN 500 MG TABLET PO SCH (17:31)
[2018-12-23] MEDS: SIMVASTATIN 10 MG TABLET PO SCH (21:58)
[2018-12-23] MEDS: SERTRALINE 100 MG TABLET PO SCH (21:59)
[2018-12-24] MEDS: ceFAZolin 2,000 MG in PREMIX 1 EACH IV SCH (00:30)
[2018-12-24] MEDS: KETOROLAC 30 MG/1 ML VIAL IV SCH (03:20)
[2018-12-24] MEDS: FONDAPARINUX 2.5 MG/0.5 ML SYRINGE SUBCUT SCH (03:25)
[2018-12-24 05:39] LABS: Basophils % 0.2 % (0.0-0.8); Eosinophils % 0.2 % (0.00-10.9); Hematocrit 26.2 VOL% (35.7-47.0); Hemoglobin 7.9 GM/DL (12.0-16.0); Immature Granulocytes % 0.6 %; Immature Granulocytes Absolute 0.06 #; Lymphocytes % 19.6 % (21.3-54.2); Mean Corpuscular HGB Conc 30.2 GM/DL (32-36); Mean Corpuscular Volume 92.6 FL (87-102); Mean Platelet Volume 11.5 FL (9.6-12.0); Monocytes % 11.7 % (1.7-12.7); Neutrophils % 67.7 % (38.7-73.9); Platelet Count 174 T/CUMM (130-400); Red Blood Count 2.83 MC/CUMM (3.8-5.5); Red Cell Distribution Width 14.2 % (9.3-17.3)
[2018-12-24 06:16] LABS: Calcium 8.3 MG/DL (8.5-10.1); Osmolality,Calculated 282.7 MOS/KG (273-304)
[2018-12-24] MEDS: INSULIN LISPRO 100 UNIT/ML SUBCUT SCH ×4 (08:58→21:01)
[2018-12-24] MEDS: metFORMIN 500 MG TABLET PO SCH ×2 (09:13→17:10)
[2018-12-24] MEDS: DOCUSATE SODIUM 100 MG CAPSULE PO SCH ×2 (09:13→20:59)
[2018-12-24] MEDS: LEVOTHYROXINE 125 MCG TABLET PO SCH (09:14)
[2018-12-24] MEDS: RALOXIFENE 60 MG TABLET PO SCH (09:14)
[2018-12-24] MEDS: MAGNESIUM CHLORIDE 64 MG TABLET PO SCH ×3 (09:14→20:59)
[2018-12-24] MEDS: PANTOPRAZOLE 40 MG TABLET PO SCH (09:14)
[2018-12-24] MEDS: LOSARTAN 50 MG TABLET PO SCH (09:24)
[2018-12-24] MEDS: LOSARTAN/HCTZ 50-12.5 MG TABLET PO SCH (09:24)
[2018-12-24] MEDS: amLODIPine 5 MG TABLET PO SCH (09:24)
[2018-12-24] MEDS: sitaGLIPtin 100 MG TABLET PO SCH (14:39)
[2018-12-24] MEDS: CARVEDILOL 12.5 MG TABLET PO SCH ×2 (14:39→20:59)
[2018-12-24] MEDS: CHOLECALCIFEROL 1,000 UNIT TABLET PO SCH (17:10)
[2018-12-24] MEDS: SPIRONOLACTONE 25 MG TABLET PO SCH (17:10)
[2018-12-24] MEDS: SIMVASTATIN 10 MG TABLET PO SCH (20:59)
[2018-12-24] MEDS: SERTRALINE 100 MG TABLET PO SCH (20:59)
[2018-12-25] MEDS: FONDAPARINUX 2.5 MG/0.5 ML SYRINGE SUBCUT SCH (03:10)
[2018-12-25 05:24] LABS: Basophils % 0.2 % (0.0-0.8); Eosinophils # 0.1 10*3/uL (0.0-0.87); Eosinophils % 0.7 % (0.00-10.9); Hemoglobin 7.6 GM/DL (12.0-16.0); Immature Granulocytes Absolute 0.09 #; Lymphocytes # 1.6 10*3/uL (1.4-4.0); Lymphocytes % 18.1 % (21.3-54.2); Mean Corpuscular HGB Conc 29.2 GM/DL (32-36); Mean Corpuscular Volume 92.5 FL (87-102); Mean Platelet Volume 11.5 FL (9.6-12.0); Monocytes % 12.3 % (1.7-12.7); Neutrophils % 67.7 % (38.7-73.9); Platelet Count 179 T/CUMM (130-400); Red Blood Count 2.81 MC/CUMM (3.8-5.5); White Blood Count 9.1 T/CUMM (4-12)
[2018-12-25] MEDS: LACTATED RINGERS 1,000 ML IV SCH (07:17)
[2018-12-25] MEDS: INSULIN LISPRO 100 UNIT/ML SUBCUT SCH ×2 (07:49→13:17)
[2018-12-25] MEDS: LEVOTHYROXINE 125 MCG TABLET PO SCH (07:51)
[2018-12-25] MEDS: metFORMIN 500 MG TABLET PO SCH (07:51)
[2018-12-25] MEDS ORDERED: ESTROGENS (CONJ) VAG CREAM 30 GM TUBE VAG SCH (08:30)
[2018-12-25] MEDS: amLODIPine 5 MG TABLET PO SCH (09:04)
[2018-12-25] MEDS: LOSARTAN/HCTZ 50-12.5 MG TABLET PO SCH (09:04)
[2018-12-25] MEDS: RALOXIFENE 60 MG TABLET PO SCH (09:05)
[2018-12-25] MEDS: MAGNESIUM CHLORIDE 64 MG TABLET PO SCH ×2 (09:05→14:10)
[2018-12-25] MEDS: DOCUSATE SODIUM 100 MG CAPSULE PO SCH (09:05)
[2018-12-25] MEDS: LOSARTAN 50 MG TABLET PO SCH (09:05)
[2018-12-25] MEDS: PANTOPRAZOLE 40 MG TABLET PO SCH (09:05)
[2018-12-25] MEDS: CARVEDILOL 12.5 MG TABLET PO SCH (14:10)
[2018-12-25] MEDS: sitaGLIPtin 100 MG TABLET PO SCH (14:11)
[2018-12-25 16:50] VITALS: BP 147/77
[2019-01-15] MEDS ORDERED: CYANOCOBALAMIN 1000 MCG/1 ML VIAL IM SCH (09:00)
== END 2018-12-25 16:55 | disposition home health service (06) | DRG 470 ==
LOC: N.OR 05:14 → N.SDSINP 05:21 → N.3E 13:36
PROVIDERS: ADMIT Orthopaedic Surgery; ATTEND Orthopaedic Surgery

== ENCOUNTER 2022-02-24 08:59 | Inpatient (IN) ==
[2022-02-24] MEDS ORDERED: ONDANSETRON 4 MG/2 ML VIAL IV STA (12:21)
[2022-02-24] MEDS ORDERED: SODIUM CHLORIDE 0.9% 1,000 ML IV STA ×2 (12:21→13:22)
[2022-02-24 12:34] LABS: Basophils # 0.1 10*3/uL (0.0-0.2); Basophils % 0.3 % (0.0-0.8); Eosinophils # 5.9 10*3/uL (0.0-0.87); Eosinophils % 25.9 % (0.00-10.9); Hematocrit 41.8 VOL% (35.7-47.0); Hemoglobin 12.4 GM/DL (12.0-16.0); Immature Granulocytes % 1.1 %; Immature Granulocytes Absolute 0.24 #; Lymphocytes % 22.1 % (21.3-54.2); Mean Corpuscular HGB Conc 29.7 GM/DL (32-36); Mean Corpuscular Volume 80.9 FL (87-102); Mean Platelet Volume 11.3 FL (9.6-12.0); Monocytes # 1.3 10*3/uL (0.11-0.8); Monocytes % 5.6 % (1.7-12.7); Platelet Count 306 T/CUMM (130-400); Red Blood Count 5.17 MC/CUMM (3.8-5.5); Red Cell Distribution Width 17.2 % (9.3-17.3); White Blood Count 22.8 T/CUMM (4-12)
[2022-02-24 12:36] LABS: Albumin 3.4 G/DL (3.4-5.0); Bilirubin,Total 0.5 MG/DL (0.20-1.00); Calcium 9.5 MG/DL (8.5-10.1); Potassium 3.9 MMOL/L (3.5-5.1); Total Protein 8.1 G/DL (6.4-8.2)
[2022-02-24 13:06] LABS: Eosinophils 24 % (0-10); Lymphocytes 19 % (20-55); Total Cells Counted 100
[2022-02-24 13:07] LABS: Platelet Estimate Adequate
[2022-02-24] MEDS ORDERED: PIPERACILLIN/TAZOBACTAM 3,375 MG in SODIUM CHLORIDE 0.9% 100 ML IV STA (13:18)
[2022-02-24] MEDS ORDERED: ACETAMINOPHEN 325 MG TABLET PO PRN (15:03)
[2022-02-24] MEDS ORDERED: GLUCAGON 1 MG VIAL IM PRN (15:03)
[2022-02-24] MEDS ORDERED: ONDANSETRON 4 MG/2 ML VIAL IV PRN (15:03)
[2022-02-24] MEDS ORDERED: CALCIUM CARBONATE CHEW 500 MG TABLET PO PRN (15:03)
[2022-02-24] MEDS ORDERED: SIMETHICONE CHEW 125 MG TABLET PO PRN (15:03)
[2022-02-24] MEDS ORDERED: ALUMINUM/MAGNES/SIMETH MAX STR 30 ML UDCUP PO PRN (15:03)
[2022-02-24] MEDS ORDERED: DEXTROSE 10% 250 ML BAG IV PRN (15:10)
[2022-02-24 15:55] LABS: % Iron Saturation 21.9 % (18-50); Folate 12.22 NG/ML (5.38-24.0); Vitamin B12 > 2000 PG/ML (211-911)
[2022-02-24 16:12] LABS: Amorphous Crystals,Urine Occasional /HPF (Few); Hyaline Casts,Urine 12 /LPF (0-3)
[2022-02-24 16:13] LABS: Protein,Urine Negative (Negative); Urine Appearance Cloudy (Clear); Urine Color Yellow (Yellow); Urine Specific Gravity >= 1.030 (1.001-1.035); Urine pH 5.5 (4.5-8.0)
[2022-02-24 16:14] LABS: Bilirubin,Urine Negative (Negative); Blood, Urine Negative (Negative); Glucose,Urine (UA) Negative (Negative); Ketones,Urine Negative (Negative); Nitrite,Urine Negative (Negative); Urine Urobilinogen 0.2 eU/dL (<2.0)
[2022-02-24] MEDS: SODIUM CHLORIDE 0.9% 1,000 ML IV SCH (16:44)
[2022-02-24] MEDS: INSULIN LISPRO 100 UNIT/ML SUBCUT SCH ×2 (17:58→21:41)
[2022-02-24] MEDS: FERROUS SULFATE 325 MG TABLET PO SCH (17:58)
[2022-02-24] MEDS: ENOXAPARIN 40 MG/0.4 ML SYRINGE SUBCUT SCH (17:58)
[2022-02-24] MEDS: SIMVASTATIN 10 MG TABLET PO SCH (21:40)
[2022-02-24] MEDS: PIPERACILLIN/TAZOBACTAM 3,375 MG in SODIUM CHLORIDE 0.9% 100 ML IV SCH (21:40)
[2022-02-24] MEDS: carvediloL 12.5 MG TABLET PO SCH (21:40)
[2022-02-24] MEDS: SERTRALINE 100 MG TABLET PO SCH (21:40)
[2022-02-25 01:52] LABS: Risk Ratio 2.85; Thyroid Stimulating Hormone 0.58 uIU/ml (0.358-3.74); VLDL Cholesterol 21.6 MG/DL
[2022-02-25 02:08] LABS: Calcium 8.1 MG/DL (8.5-10.1); Osmolality,Calculated 277.7 MOS/KG (273-304); Potassium 3.2 MMOL/L (3.5-5.1)
[2022-02-25] MEDS: POTASSIUM CHLORIDE 20 MEQ TABLET PO PRN ×2 (02:44→06:38)
[2022-02-25 03:37] LABS: Basophils % 0.2 % (0.0-0.8); Eosinophils % 28.6 % (0.00-10.9); Immature Granulocytes % 0.6 %; Immature Granulocytes Absolute 0.09 #; Lymphocytes # 3.9 10*3/uL (1.4-4.0); Lymphocytes % 28.2 % (21.3-54.2); Mean Corpuscular Volume 80.2 FL (87-102); Mean Platelet Volume 10.8 FL (9.6-12.0); Monocytes # 0.8 10*3/uL (0.11-0.8); Monocytes % 5.5 % (1.7-12.7); Neutrophils % 36.9 % (38.7-73.9)
[2022-02-25 03:41] LABS: Platelet Count 164 T/CUMM (130-400); Red Blood Count 3.74 MC/CUMM (3.8-5.5); White Blood Count 13.9 T/CUMM (4-12)
[2022-02-25 04:11] LABS: Band Neutrophils 1 % (0-10); Eosinophils 26 % (0-10); Lymphocytes 29 % (20-55); Total Cells Counted 100
[2022-02-25 04:12] LABS: Platelet Estimate Adequate
[2022-02-25 04:13] LABS: Ovalocytes Slight
[2022-02-25] MEDS: SODIUM CHLORIDE 0.9% 1,000 ML IV SCH ×4 (05:29→21:16)
[2022-02-25] MEDS: LEVOTHYROXINE 125 MCG TABLET PO SCH (05:50)
[2022-02-25] MEDS: PIPERACILLIN/TAZOBACTAM 3,375 MG in SODIUM CHLORIDE 0.9% 100 ML IV SCH (05:50)
[2022-02-25] MEDS ORDERED: POTASSIUM CHLORIDE 20 MEQ TABLET PO ONE (07:40)
[2022-02-25] MEDS ORDERED: VANCOMYCIN INJ 1,500 MG in SODIUM CHLORIDE 0.9% 250 ML IV SCH (08:00)
[2022-02-25] MEDS: INSULIN LISPRO 100 UNIT/ML SUBCUT SCH ×4 (08:13→21:16)
[2022-02-25] MEDS: amLODIPine 5 MG TABLET PO SCH (08:21)
[2022-02-25] MEDS: PANTOPRAZOLE 40 MG TABLET PO SCH (08:21)
[2022-02-25] MEDS: CHOLECALCIFEROL PO SCH (08:22)
[2022-02-25] MEDS: [UNRECOGNIZED DRUG - OTHER] PO SCH (08:22)
[2022-02-25] MEDS ORDERED: MAGNESIUM SULF INJ 3 GM in SODIUM CHLORIDE 0.9% 100 ML IV ONE (09:00)
[2022-02-25] MEDS ORDERED: LOPERAMIDE 2 MG CAPSULE PO ONE (09:51)
[2022-02-25] MEDS: VANCOMYCIN INJ 1,500 MG in SODIUM CHLORIDE 0.9% 500 ML IV SCH ×2 (10:14→21:20)
[2022-02-25] MEDS: carvediloL 12.5 MG TABLET PO SCH ×2 (16:03→21:20)
[2022-02-25] MEDS: ENOXAPARIN 40 MG/0.4 ML SYRINGE SUBCUT SCH (16:03)
[2022-02-25] MEDS: SERTRALINE 100 MG TABLET PO SCH (21:20)
[2022-02-25] MEDS: SIMVASTATIN 10 MG TABLET PO SCH (21:20)
[2022-02-26 06:12] LABS: Basophils % 0.4 % (0.0-0.8); Eosinophils # 2.6 10*3/uL (0.0-0.87); Eosinophils % 28.8 % (0.00-10.9); Hematocrit 29.3 VOL% (35.7-47.0); Hemoglobin 8.5 GM/DL (12.0-16.0); Immature Granulocytes % 1.1 %; Lymphocytes # 2.6 10*3/uL (1.4-4.0); Lymphocytes % 28.1 % (21.3-54.2); Mean Corpuscular Volume 82.3 FL (87-102); Mean Platelet Volume 11.1 FL (9.6-12.0); Monocytes # 0.6 10*3/uL (0.11-0.8); Monocytes % 6.8 % (1.7-12.7); Neutrophils % 34.8 % (38.7-73.9); Platelet Count 150 T/CUMM (130-400); Red Blood Count 3.56 MC/CUMM (3.8-5.5); Red Cell Distribution Width 17.2 % (9.3-17.3); White Blood Count 9.1 T/CUMM (4-12)
[2022-02-26] MEDS: LEVOTHYROXINE 125 MCG TABLET PO SCH (06:17)
[2022-02-26 06:24] LABS: Alanine Aminotransferase 12 U/L (13-56); Albumin 2.4 G/DL (3.4-5.0); Alkaline Phosphatase 100 U/L (45-117); Aspartate Amino Transferase 16 U/L (0-37); Bilirubin,Total < 0.39 MG/DL (0.20-1.00); Blood Urea Nitrogen 8 MG/DL (7-18); Calcium 7.5 MG/DL (8.5-10.1); Carbon Dioxide 19 MMOL/L (21-32); Chloride 118 MMOL/L (98-107); Glucose 122 MG/DL (74-106); Potassium 3.6 MMOL/L (3.5-5.1); Sodium 143 MMOL/L (136-145); Total Protein 5.6 G/DL (6.4-8.2)
[2022-02-26] MEDS ORDERED: MAGNESIUM SULF RIDER 4 GM/100 ML PREMIX IV PRN (06:35)
[2022-02-26 06:59] LABS: Eosinophils 29 % (0-10); Lymphocytes 25 % (20-55); Platelet Estimate Normal; Total Cells Counted 100
[2022-02-26] MEDS: MAGNESIUM SULF RIDER 2 GM/50 ML PREMIX IV PRN (07:02)
[2022-02-26] MEDS: INSULIN LISPRO 100 UNIT/ML SUBCUT SCH ×4 (07:38→21:13)
[2022-02-26] MEDS: VANCOMYCIN INJ 1,500 MG in SODIUM CHLORIDE 0.9% 500 ML IV SCH (08:45)
[2022-02-26] MEDS: PANTOPRAZOLE 40 MG TABLET PO SCH (08:45)
[2022-02-26] MEDS: [UNRECOGNIZED DRUG - OTHER] PO SCH (08:46)
[2022-02-26] MEDS: CHOLECALCIFEROL PO SCH (08:46)
[2022-02-26] MEDS: amLODIPine 5 MG TABLET PO SCH (09:03)
[2022-02-26] MEDS: SODIUM CHLORIDE 0.9% 1,000 ML IV SCH ×2 (10:22→15:56)
[2022-02-26] MEDS: FERROUS SULFATE 325 MG TABLET PO SCH ×2 (12:31→16:17)
[2022-02-26] MEDS ORDERED: LOPERAMIDE 2 MG CAPSULE PO PRN (13:42)
[2022-02-26] MEDS: cefTRIAXone 1,000 MG in SODIUM CHLORIDE 0.9% 100 ML IV SCH (15:56)
[2022-02-26] MEDS: carvediloL 12.5 MG TABLET PO SCH ×2 (15:56→21:13)
[2022-02-26] MEDS: ENOXAPARIN 40 MG/0.4 ML SYRINGE SUBCUT SCH (16:17)
[2022-02-26] MEDS: SERTRALINE 100 MG TABLET PO SCH (21:12)
[2022-02-26] MEDS: HYDROCORTISONE 25 MG SUPP RECTAL SCH (21:12)
[2022-02-26] MEDS: SIMVASTATIN 10 MG TABLET PO SCH (21:13)
[2022-02-27 05:45] LABS: Basophils % 0.5 % (0.0-0.8); Eosinophils # 0.9 10*3/uL (0.0-0.87); Eosinophils % 15.3 % (0.00-10.9); Hematocrit 28.5 VOL% (35.7-47.0); Hemoglobin 8.4 GM/DL (12.0-16.0); Immature Granulocytes % 1.8 %; Immature Granulocytes Absolute 0.11 #; Lymphocytes # 2.3 10*3/uL (1.4-4.0); Lymphocytes % 36.9 % (21.3-54.2); Mean Corpuscular HGB Conc 29.5 GM/DL (32-36); Mean Corpuscular Volume 81.9 FL (87-102); Mean Platelet Volume 10.9 FL (9.6-12.0); Monocytes # 0.5 10*3/uL (0.11-0.8); Monocytes % 8.7 % (1.7-12.7); Neutrophils % 36.8 % (38.7-73.9); Platelet Count 141 T/CUMM (130-400); Red Blood Count 3.48 MC/CUMM (3.8-5.5); Red Cell Distribution Width 17.4 % (9.3-17.3); White Blood Count 6.1 T/CUMM (4-12)
[2022-02-27 06:04] LABS: Calcium 7.7 MG/DL (8.5-10.1); Potassium 3.5 MMOL/L (3.5-5.1)
[2022-02-27 06:13] LABS: Band Neutrophils 2 % (0-10); Eosinophils 22 % (0-10); Hypochromia Slight; Lymphocytes 30 % (20-55); Microcytosis Slight; Platelet Estimate Adequate; Total Cells Counted 100
[2022-02-27] MEDS: LEVOTHYROXINE 125 MCG TABLET PO SCH (06:22)
[2022-02-27] MEDS: CHOLECALCIFEROL 1,000 UNIT TABLET PO SCH (09:50)
[2022-02-27] MEDS: PANTOPRAZOLE 40 MG TABLET PO SCH (09:50)
[2022-02-27] MEDS: amLODIPine 5 MG TABLET PO SCH (09:50)
[2022-02-27] MEDS: POTASSIUM CHLORIDE 20 MEQ TABLET PO PRN ×2 (09:51→11:57)
[2022-02-27] MEDS: HYDROCORTISONE 25 MG SUPP RECTAL SCH ×2 (09:51→21:56)
[2022-02-27] MEDS: FERROUS SULFATE 325 MG TABLET PO SCH ×3 (09:51→16:50)
[2022-02-27] MEDS: cefTRIAXone 1,000 MG in SODIUM CHLORIDE 0.9% 100 ML IV SCH (09:56)
[2022-02-27] MEDS: INSULIN LISPRO 100 UNIT/ML SUBCUT SCH ×4 (10:52→21:57)
[2022-02-27] MEDS: MAGNESIUM SULF RIDER 2 GM/50 ML PREMIX IV PRN (11:12)
[2022-02-27] MEDS: SODIUM CHLORIDE 0.9% 1,000 ML IV SCH (11:15)
[2022-02-27] MEDS: carvediloL 12.5 MG TABLET PO SCH ×2 (15:55→21:56)
[2022-02-27] MEDS: ENOXAPARIN 40 MG/0.4 ML SYRINGE SUBCUT SCH (21:56)
[2022-02-27] MEDS: SIMVASTATIN 10 MG TABLET PO SCH (21:56)
[2022-02-27] MEDS: SERTRALINE 100 MG TABLET PO SCH (21:56)
[2022-02-27] MEDS: CHOLESTYRAMINE 4 GM PACK PO SCH (21:57)
[2022-02-28 05:53] LABS: Basophils % 0.8 % (0.0-0.8); Eosinophils # 0.4 10*3/uL (0.0-0.87); Eosinophils % 7.5 % (0.00-10.9); Hematocrit 27.8 VOL% (35.7-47.0); Hemoglobin 8.2 GM/DL (12.0-16.0); Immature Granulocytes % 2.4 %; Immature Granulocytes Absolute 0.13 #; Lymphocytes # 2.1 10*3/uL (1.4-4.0); Lymphocytes % 39.8 % (21.3-54.2); Mean Corpuscular HGB Conc 29.5 GM/DL (32-36); Mean Corpuscular Volume 81.8 FL (87-102); Mean Platelet Volume 10.8 FL (9.6-12.0); Monocytes # 0.4 10*3/uL (0.11-0.8); Monocytes % 7.7 % (1.7-12.7); Neutrophils % 41.8 % (38.7-73.9); Platelet Count 132 T/CUMM (130-400); Red Cell Distribution Width 17.4 % (9.3-17.3); White Blood Count 5.3 T/CUMM (4-12)
[2022-02-28 06:07] LABS: Calcium 7.8 MG/DL (8.5-10.1); Potassium 3.8 MMOL/L (3.5-5.1)
[2022-02-28] MEDS: LEVOTHYROXINE 125 MCG TABLET PO SCH (06:08)
[2022-02-28] MEDS: INSULIN LISPRO 100 UNIT/ML SUBCUT SCH ×2 (07:47→12:48)
[2022-02-28] MEDS: CHOLESTYRAMINE 4 GM PACK PO SCH ×2 (08:14→09:58)
[2022-02-28] MEDS: CHOLECALCIFEROL 1,000 UNIT TABLET PO SCH (08:15)
[2022-02-28] MEDS: FERROUS SULFATE 325 MG TABLET PO SCH ×2 (08:15→13:25)
[2022-02-28] MEDS: amLODIPine 5 MG TABLET PO SCH (08:15)
[2022-02-28] MEDS: PANTOPRAZOLE 40 MG TABLET PO SCH (08:15)
[2022-02-28] MEDS: cefTRIAXone 1,000 MG in SODIUM CHLORIDE 0.9% 100 ML IV SCH (08:16)
[2022-02-28] MEDS: HYDROCORTISONE 25 MG SUPP RECTAL SCH (09:12)
[2022-02-28 11:40] VITALS: BP 122/58
== END 2022-02-28 13:31 | disposition home or self-care (01) | DRG 690 ==
LOC: N.EDINP 08:59 → N.ED 08:59 → SUATTDRO 15:01 → N.5E 17:26 → SUATTDRO 02-25 07:53
PROVIDERS: ADMIT Internal Medicine; ATTEND Internal Medicine